=== PATIENT | male | born 1990 | race Hispanic/Latino ===

== ENCOUNTER 2018-07-01 07:54 | Emergency (ER) | payer OTHER, BC ==
[~2018-07-01] VITALS: Ht 172.7 cm; Wt 82.0 kg
[2018-07-01] MEDS ORDERED: BACITRACIN3.5 GM TOP (08:05)
[2018-07-01 08:30] VITALS: BP 148/98
== END 2018-07-01 09:22 | disposition home or self-care (01) | DRG 935 ==
LOC: ED 07:54
DX: T20.19XA Burn of first degree of multiple sites of head, face, and neck, initial encounter (principal); W40.1XXA Explosion of explosive gases, initial encounter; Y93.89 Activity, other specified; Y92.89 Other specified places as the place of occurrence of the external cause; Y99.1 Military activity